=== PATIENT | male | born 1960 ===

== ENCOUNTER 2022-01-28 16:58 | Emergency (ER) | payer SELFPAY ==
[~2022-01-28] VITALS: Ht 177.8 cm; Wt 111.5 kg
[2022-01-28 17:22] VITALS: BP 155/86
== END 2022-01-29 02:16 | disposition left against medical advice (07) ==
LOC: ER 16:58
DX: I10 Essential (primary) hypertension (principal); Z76.0 Encounter for issue of repeat prescription; Z53.21 Procedure and treatment not carried out due to patient leaving prior to being seen by health care provider